=== PATIENT | male | born 1955 | race African-American/Black ===

== ENCOUNTER 2020-08-21 11:12 | Emergency (ER) | payer OTHER ==
[~2020-08-21] VITALS: Ht 177.8 cm; Wt 109.0 kg
[2020-08-21 12:12] LABS: BASOPHILS % 1.1 % (0.0-2.0); EOSINOPHILS % 3.5 % (0.0-5.0); HEMATOCRIT. 26.6 % (42.0-52.0); HEMOGLOBIN. 8.7 g/dL (14.0-18.0); LYMPHOCYTES % 9.2 % (20.0-50.0); MEAN CORPUSCULAR HEMOGLOBIN 29.2 pg (28.0-32.0); MEAN CORPUSCULAR VOLUME 89.2 fL (80.0-94.0); MEAN PLATELET VOLUME 7.5 fl (7.4-10.4); MONOCYTES % 9.2 % (2.0-8.0); PLATELET 353 x1000/uL (130-400); RED BLOOD CELL COUNT 2.98 mill/uL (4.7-6.1)
[2020-08-21 12:16] LABS: CHLORIDE 103 mEq/L (98-107)
[2020-08-21 12:19] LABS: ETHANOL BLOOD < 10 mg/dL
[2020-08-21 17:00] VITALS: BP 150/78
== END 2020-08-21 17:00 | disposition short-term general hospital (02) ==
LOC: ER 11:32
DX: I13.2 Hypertensive heart and chronic kidney disease with heart failure and with stage 5 chronic kidney disease, or end stage renal disease (principal); E11.22 Type 2 diabetes mellitus with diabetic chronic kidney disease; E11.42 Type 2 diabetes mellitus with diabetic polyneuropathy; N18.6 End stage renal disease; I50.9 Heart failure, unspecified; R77.8 Other specified abnormalities of plasma proteins; M47.892 Other spondylosis, cervical region; Z95.1 Presence of aortocoronary bypass graft; Z87.891 Personal history of nicotine dependence
CPT/HCPCS: 36415; 70450; 71045; 72125; 80053; 80320; 83880; 84484; 85025; 93005; 99285; Z7610; G0480